=== PATIENT | female | born 1945 | race Caucasian/White ===

== ENCOUNTER 2024-02-26 15:18 | Inpatient (IN) ==
[2024-02-26] MEDS ORDERED: MAGNESIUM, ALUMINUM HYDROXIDE 30 ML ORAL.SUSP PO PRN (17:06)
[2024-02-26] MEDS: 0.9 % SODIUM CHLORIDE 1000 ML 1,000 ML IV SCH (18:00)
[2024-02-26 18:20] LABS: Base Excess ABG 0.6 mmo1/L (-2-2); Oxygen Saturation ABG 93 % (92-100); PCO2 ABG 36 mmHg (35-45); PO2 ABG 63 mmHg (60-100); pH ABG 7.44 (7.35-7.45)
[2024-02-26] MEDS: 0.9 % SODIUM CHLORIDE 500 ML IV ONE (18:40)
[2024-02-26] MEDS: FLUOXETINE HCL 10 MG CAPSULE PO SCH (18:50)
[2024-02-26] MEDS: LORATADINE 10 MG TABLET PO SCH (18:50)
[2024-02-26] MEDS: AZITHROMYCIN 500 MG 500 MG in 0.9 % SODIUM CHLORIDE 250 ML IV SCH ×2 (19:42→23:38)
[2024-02-26] MEDS: PIPERACILLIN/TAZOBACTAM 3.375 3.375 GM in 0.9 % SODIUM CHLORIDE MB+ 100 ML IV SCH (19:42)
[2024-02-26 20:02] LABS: Basophils #(Absolute) Auto 0.1 (0.0-0.1); Basophils%(Percent) Auto 0.8 (0.1-0.85); Eosinophils%(Percent) Auto 0.2 % (0.4-2.8); Granulocytes % - Auto 34.1 % (47.8-71.3); Granulocytes#(Absolute)- Auto 3.1 (2.3-6.0); Hematocrit 38.2 % (35.9-46.7); Monocytes #(Absolute)- Auto 0.9 (1.1-3.1); Platelet Count 239 K/uL (152-353); White Blood Count 9.1 K/uL (4.3-9.3)
[2024-02-26] MEDS: BUDESONIDE 0.5 MG/2 ML AMPUL.NEB INH SCH (20:05)
[2024-02-26] MEDS: IPRATROPIUM/ALBUTEROL SULFATE 3 ML AMPUL.NEB INH SCH (20:05)
[2024-02-26 20:13] LABS: Potassium 3.3 mmol/L (3.6-5.2)
[2024-02-26] MEDS: TRAZODONE HCL 50 MG TABLET PO SCH (20:31)
[2024-02-26] MEDS: QUETIAPINE FUMARATE 25 MG TABLET PO SCH (20:31)
[2024-02-26] MEDS: VANCOMYCIN HCL 1 MG in 0.9 % SODIUM CHLORIDE 250 ML IV SCH ×2 (20:32→23:38)
[2024-02-27] MEDS: ACETAMINOPHEN 500 MG TABLET PO PRN (02:12)
[2024-02-27 02:16] LABS: PH BODY FLUID EXCP BLOOD 7.5 (5 - 9); Specific Gravity Urine 1.015 (1.001-1.035); Urine Appearance HAZY (CLEAR); Urine Blood NEGATIVE (NEG - TRACE); Urine Color DARK YELLOW (STRAW/YELL.); Urine Urobilinogen Normal (NORMAL)
[2024-02-27 05:44] LABS: Basophils%(Percent) Auto 0.4 (0.1-0.85); Granulocytes % - Auto 50.8 % (47.8-71.3); Hematocrit 34.6 % (35.9-46.7); Mean Corpuscular Volume 89.9 fl (81.0-93.7); Monocytes #(Absolute)- Auto 1.2 (1.1-3.1); Monocytes %(Percent)- Auto 12.6 % (3.6-9.8); Platelet Count 195 K/uL (152-353); White Blood Count 9.8 K/uL (4.3-9.3)
[2024-02-27 06:23] LABS: Potassium 3.2 mmol/L (3.6-5.2)
[2024-02-27] MEDS: MULTIVITAMIN TABLET PO SCH (09:29)
[2024-02-27] MEDS: LEVOTHYROXINE SODIUM 75 MCG TABLET PO SCH (09:29)
[2024-02-27] MEDS: ALBUMIN HUMAN 25% 100 ML IV SCH (10:36)
[2024-02-27] MEDS: HYDROCODONE/CHLORPHEN P-STIREX 5 ML SUS.ER.12H PO PRN (10:37)
[2024-02-27] MEDS: MAGNESIUM OXIDE 400 MG TABLET PO SCH (10:37)
[2024-02-27] MEDS: POTASSIUM PHOSPHATE 500 MG TABLET.SOL PO SCH (10:37)
[2024-02-27] MEDS: POTASSIUM CHLORIDE 20 MEQ TAB.ER.PRT PO ONE (10:37)
--- NOTE | 2024-02-27 15:29 | History & Physical Report ---
H&P: HPI History of Present Illness Chief complaint: BILATERAL PNEUMONIA Narrative: Patient is a 78 year old female who was admitted to the [facility] on 02/19/2024. She tested positive for Influenza A on 02/23/2024 and developed Pneumonia thereafter. Patient was spiking a temperature of 102.3, treated with Tylenol and fever reduced to 99.2. Per nursing staff, wheezing on inspiratory and expiratory noted. Patient has become weaker since she has been sick. Difficulty arousing and not eating well also had increased respirations with desating into low 80's requiring oxygen and needs treatment not available currently in the BHU. Provider recommended patient discharging from SCU and admitted to the med/surg floor as an inpatient for further testing and care. Per dr Dahl patient improved depression and no longer a 1013 at this time. Patient not currently voicing desire to harm herself at the time of status change Review of Systems Status of ROS unobtainable due to mental status [facility] Medical History (Updated 02/29/24 @ 09:49 by Rae Amaya NP) Hypokalemia Pneumonia Hoarding behavior Depression with suicidal ideation Depression Suicidal ideation Hypothyroid Social History Problems where you live: no known problems Highest level of school completed/degree received: high school Feel stressed/tense/nervous/anxious/difficulty sleeping: only a little Life stressor details: Patient states - I want to end my life, her plan is to take an overdose of her prescribed antidepressant pills Due to disability, difficulty making decisions: Yes (judgement is compromised when she is upset.) Meds Home Medications and Allergies Home Medications Medication Instructions Recorded Confirmed Type levothyroxine 75 mcg tablet 75 mcg PO DAILY 02/20/24 02/20/24 History lidocaine 4 % topical patch 1 patch topical Q24H 02/20/24 02/20/24 History lorazepam 0.5 mg tablet 0.5 mg PO DAILY PRN anxiety 02/20/24 02/20/24 History pediatric multivitamin 1 tab PO DAILY 02/20/24 02/20/24 History (Flintstones Multivitamin chewable tablet) quetiapine 25 mg tablet 25 mg PO BID ANXIETY 02/20/24 02/20/24 History topiramate 50 mg tablet (Topamax) 50 mg PO BID 02/20/24 02/20/24 History trazodone 50 mg tablet 25 mg PO .QHS SLEEP 02/20/24 02/20/24 History acetaminophen 325 mg tablet 975 mg (3 x 325 mg) PO Q3H PRN 02/25/24 Rx Fever Of 100.5 Or Greater #30 tabs acetaminophen 325 mg tablet 975 mg (3 x 325 mg) PO Q3H PRN 02/25/24 Rx Fever Of 100.5 Or Greater #30 tabs fluoxetine 10 mg capsule (Prozac) 30 mg (3 x 10 mg) PO DAILY 02/25/24 Rx depression and anxiety #30 caps ibuprofen 400 mg tablet 600 mg (1.5 x 400 mg) PO Q3H PRN 02/25/24 Rx Fever Of 100.5 Or Greater #30 tabs ibuprofen 400 mg tablet 600 mg (1.5 x 400 mg) PO Q3H PRN 02/25/24 Rx Fever Of 100.5 Or Greater #30 tabs levothyroxine 75 mcg tablet 75 mcg PO DAILY hypothyroidism #30 02/25/24 Rx (Synthroid) tabs lidocaine 5 % topical patch 1 patch topical Q24H pain #30 ea 02/25/24 Rx (Lidoderm) lorazepam 0.5 mg tablet 0.25 mg (1/2 x 0.5 mg) PO BID 02/25/24 Rx anxiety #60 tabs multivitamin with folic acid 400 1 tab PO DAILY vitamin deficiency 02/25/24 Rx mcg tablet (Tab-A-Danie) #30 tabs oseltamivir 75 mg capsule (Tamiflu) 75 mg PO DAILY flu #10 caps 02/25/24 Rx quetiapine 25 mg tablet 25 mg PO BID psychosis and 02/25/24 Rx agitation #60 tabs topiramate 100 mg tablet 50 mg (1/2 x 100 mg) PO BID 02/25/24 Rx headache #60 tabs trazodone 50 mg tablet 25 mg (1/2 x 50 mg) PO .QHS 02/25/24 Rx insomnia #30 tabs Allergies Allergy/AdvReac Type Severity Reaction Status Date / Time No Known Drug Allergies Allergy Verified 02/19/24 16:36 Exam Exam: Patient laying in bed resting with eyes open. Constitutional: normal general appearance, distress noted (moderate), abnormal body habitus (overweight), limitations noted (behavioral limitations) and (physical limitations) and level of alertness abnormal (lethargic) Vital Signs - 24 hr 02/26/24 18:30 02/26/24 20:00 02/26/24 20:02 Temperature 98.5 F 98.7 F Pulse Rate [Right] Respiratory Rate 20 16 Blood Pressure [Le ft Arm] 95/61 123/55 Pulse Oximetry 94 L 94 L 93 L Oxygen Delivery Me thod Nasal Cannula Nasal Cannula Nasal Cannula Oxygen Flow Rate 3 2 Fraction of Inspir ed Oxygen 28 02/26/24 20:03 02/27/24 00:00 02/27/24 03:27 Temperature 103.1 F H Pulse Rate [Right] Respiratory Rate 16 Blood Pressure [Le ft Arm] 116/57 Pulse Oximetry 93 L 95 95 Oxygen Delivery Me thod Nasal Cannula Oxygen Flow Rate 3 Fraction of Inspir ed Oxygen 02/27/24 04:00 02/27/24 07:23 02/27/24 07:23 Temperature 99.5 F Pulse Rate [Right] Respiratory Rate 16 Blood Pressure [Le ft Arm] 87/41 Pulse Oximetry 100 92 L 92 L Oxygen Delivery Me thod Nasal Cannula Nasal Cannula Oxygen Flow Rate 3 3 Fraction of Inspir ed Oxygen 02/27/24 08:00 02/27/24 11:19 02/27/24 12:00 Temperature 97.7 F 98.6 F Pulse Rate [Right] 71 62 Respiratory Rate 18 18 Blood Pressure [Le ft Arm] 90/56 83/49 Pulse Oximetry 97 98 96 Oxygen Delivery Me thod Nasal Cannula Nasal Cannula Oxygen Flow Rate 3 3 Fraction of Inspir ed Oxygen HENMT: normocephalic, head/scalp atraumatic, external ears normal, nasal mucous membranes abnormal (nasal discharge), oral mucous membranes abnormal (dry) and oropharynx abnormal (erythema) Eyes: conjunctivae normal and periorbital findings normal Lymph: no lymphadenopathy noted Chest: inspection of chest normal Respiratory: breath sounds equal bilaterally, abnormal respiratory effort (shallow breathing) and (labored), auscultation abnormal (diminished breath sound) and (bronchial breath sounds) and wheezing noted (scattered wheezes) Cardiovascular: normal heart rate noted, regular rhythm noted and no murmur Gastrointestinal: nontender to palpation, nondistended and normoactive bowel sounds Extremities: normal to inspection 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 Psychiatry: Mental Status Exam documented in the separate MSE (In H&P under other) cooperative Feel stressed/tense/nervous/anxious/difficulty sleeping: only a little Due to disability, difficulty making decisions: Yes (judgement is compromised when she is upset.) Skin: skin color abnormal Reports (pale) Assessment and Plan Assessment and Plan (1) Pneumonia: Qualifiers: Laterality: bilateral Lung location: upper lobe of lung Pneumonia type: due to unspecified organism Qualified Code(s): J18.9 - Pneumonia, unspecified organism Code(s): J18.9 - Pneumonia, unspecified organism (2) Hypoxia: Code(s): R09.02 - Hypoxemia (3) Influenza A: Code(s): J10.1 - Influenza due to other identified influenza virus with other respiratory manifestations (4) Hypomagnesemia: Code(s): E83.42 - Hypomagnesemia (5) Hypoalbuminemia: Code(s): E88.09 - Other disorders of plasma-protein metabolism, not elsewhere classified (6) Hypokalemia: Code(s): E87.6 - Hypokalemia (7) Body aches: Code(s): R52 - Pain, unspecified (8) Major depressive disorder, recurrent, moderate: Code(s): F33.1 - Major depressive disorder, recurrent, moderate (9) Hypothyroid: Qualifiers: Hypothyroidism type: unspecified Qualified Code(s): E03.9 - Hypothyroidism, unspecified Code(s): E03.9 - Hypothyroidism, unspecified Plan Sodium Chloride 1,000 mls @ 125 mls/hr IV CONT Albumin 100 mls @ 60 mls/hr IV Q2H Albuterol Sulfate 3 ml INH RQ4 Budesonide 0.5 mg INH RBID Piperacillin Sod/Tazobactam Sod 3.375 gm in Sodium Chloride 100 mls @ 200 mls/hr IV Q6H Quetiapine Fumarate 25 mg PO BID Fluoxetine Hcl 30 mg PO DAILY Levothyroxine Sodium 75 mcg PO QDAC Trazodone Hcl 25 mg PO BEDTIME Loratadine 10 mg PO DAILY Multivitamins (1) each PO DAILY Azithromycin 500 mg in Sodium Chloride 250 mls @ 250 mls/hr IV Q24H Magnesium 400 mg PO DAILY Potassium Phosphate 500 mg PO BID Vancomycin Hcl 1,000 mg in Sodium Acetaminophen 1,000 mg PO Q6H PRN Magnesium Hydroxide 30 ml PO DAILY PRN Ketorolac Tromethamine 15 mg IVP Q6H PRN Chlorphenir/Hydrocodone Polistirex 5 ml Q12H PRN Results Labs Labs: CBC WBC 9.8 K/uL (4.3-9.3) H 02/27/24 05:35 RBC 3.9 M/uL (4.00-5.50) L 02/27/24 05:35 Hgb 11.5 gm/dL (12.5-15.8) L 02/27/24 05:35 Hct 34.6 % (35.9-46.7) L 02/27/24 05:35 MCV 89.9 fl (81.0-93.7) 02/27/24 05:35 MCH 30.0 pg (27.6-32.2) 02/27/24 05:35 MCHC 33.4 g/dl (33.1-35.3) 02/27/24 05:35 RDW 14.9 % (11.4-14.2) H 02/27/24 05:35 Plt Count 195 K/uL (152-353) 02/27/24 05:35 MPV 8.5 fl (6.9-10.8) 02/27/24 05:35 Gran % 50.8 % (47.8-71.3) 02/27/24 05:35 Lymph % (Auto) 36.2 % (20.0-43.0) 02/27/24 05:35 [place] % (Auto) 12.6 % (3.6-9.8) H 02/27/24 05:35 Eos % (Auto) 0.0 % (0.4-2.8) L 02/27/24 05:35 Baso % (Auto) 0.4 (0.1-0.85) 02/27/24 05:35 Lymph # (Auto) 3.6 (1.1-3.1) H 02/27/24 05:35 [place] # (Auto) 1.2 (1.1-3.1) 02/27/24 05:35 Eos # (Auto) 0.0 (0.0-0.2) 02/27/24 05:35 Baso # (Auto) 0.0 (0.0-0.1) 02/27/24 05:35 Absolute Gran (auto) 5.0 (2.3-6.0) 02/27/24 05:35 BMP Sodium 136 mmol/L (136-145) 02/27/24 05:35 Potassium 3.2 mmol/L (3.6-5.2) L 02/27/24 05:35 Chloride 104.0 mmol/L (98-107) 02/27/24 05:35 Carbon Dioxide 23 mmol/L (21-32) 02/27/24 05:35 Anion Gap 9.0 mEq/L (4-14) 02/27/24 05:35 BUN 14 mg/dL (7-18) 02/27/24 05:35 Creatinine 1.3 mg/dL (0.6-1.3) 02/27/24 05:35 Estimated GFR 42.1 (>59.9) 02/27/24 05:35 Glucose 104 mg/dL (70-110) 02/27/24 05:35 Calcium 7.4 mg/dL (8.5-10.1) L 02/27/24 05:35 Phosphorus 2.1 mg/dL (2.5-4.9) L 02/27/24 05:35 Magnesium 1.7 mg/dL (1.8-2.4) L 02/27/24 05:35 Total Bilirubin 0.35 mg/dL (0.0-1.0) 02/27/24 05:35 AST 39 U/L (15-37) H 02/27/24 05:35 ALT 10 U/L (30-65) L 02/27/24 05:35 Alkaline Phosphatase 60 U/L (50-136) 02/27/24 05:35 Total Protein 5.6 g/dL (6.4-8.2) L 02/27/24 05:35 Albumin 1.8 g/dL (3.4-5.0) L 02/27/24 05:35 Cardiac Enzymes Troponin I High Sens 21.40 ng/L (4.0-60.4) 02/26/24 19:55 Liver Function Total Bilirubin 0.35 mg/dL (0.0-1.0) 02/27/24 05:35 AST 39 U/L (15-37) H 02/27/24 05:35 ALT 10 U/L (30-65) L 02/27/24 05:35 Alkaline Phosphatase 60 U/L (50-136) 02/27/24 05:35 Total Protein 5.6 g/dL (6.4-8.2) L 02/27/24 05:35 Albumin 1.8 g/dL (3.4-5.0) L 02/27/24 05:35 Urine Urine Color Dark yellow (STRAW/YELL.) 02/26/24 02:05 Urine Appearance Hazy (CLEAR) 02/26/24 02:05 Ur Specific [place] 1.015 (1.001-1.035) 02/26/24 02:05 Urine Protein Negative (NEGATIVE) 02/26/24 02:05 Urine Glucose (UA) Normal (NORMAL) 02/26/24 02:05 Urine Ketones Negative (NEGATIVE) 02/26/24 02:05 Urine Occult Blood Negative (NEG - TRACE) 02/26/24 02:05 Urine Nitrite Negative (NEGATIVE) 02/26/24 02:05 Urine Bilirubin Negative (NEGATIVE) 02/26/24 02:05 Urine Urobilinogen Normal (NORMAL) 02/26/24 02:05 Ur Leukocyte Esterase Negative (NEGATIVE) 02/26/24 02:05 ABG ABG results: 02/26/24 17:06 ABG pH 7.44 ABG pCO2 36 ABG pO2 183 ABG HCO3 24.5 ABG Total CO2 25.6 ABG O2 Saturation 93 ABG Base Excess 0.6 Imaging Imaging ordered: Chest x-ray Radiologist's impression: XR CHEST 2V Date of Service: 02/27/24 HISTORY: pneumonia; COMPARISON: February 25, 2024 FINDINGS: The trachea is midline. The cardiac silhouette is mildly enlarged. Lung reveals improving bilateral bronchopneumonia with interstitial lung disease. No effusion seen. The bony thorax is unremarkable. IMPRESSION: Chronic interstitial lung disease. Improving bilateral bronchopneumonia.
[2024-02-27] MEDS: VANCOMYCIN HCL 1,000 MG in 0.9 % SODIUM CHLORIDE 250 ML IV SCH (20:06)
[2024-02-28 05:01] LABS: Basophils%(Percent) Auto 0.3 (0.1-0.85); Eosinophils%(Percent) Auto 0.1 % (0.4-2.8); Granulocytes % - Auto 67.2 % (47.8-71.3); Granulocytes#(Absolute)- Auto 7.3 (2.3-6.0); Hematocrit 31.7 % (35.9-46.7); Mean Corpuscular Volume 89.8 fl (81.0-93.7); Monocytes #(Absolute)- Auto 1.2 (1.1-3.1); Monocytes %(Percent)- Auto 11.4 % (3.6-9.8); Platelet Count 174 K/uL (152-353); White Blood Count 10.9 K/uL (4.3-9.3)
[2024-02-28 05:23] LABS: Potassium 3.8 mmol/L (3.6-5.2)
[2024-02-28 06:13] LABS: Specific Gravity Urine 1.015 (1.001-1.035); Urine Appearance CLEAR (CLEAR); Urine Blood NEGATIVE (NEG - TRACE); Urine Color YELLOW (STRAW/YELL.); Urine Urobilinogen Normal (NORMAL)
[2024-02-28] MEDS: KETOROLAC 30 MG/ML INJ VIAL IVP PRN (06:22)
--- NOTE | 2024-02-28 11:01 | Progress Note ---
Progress Note: Subjective Subjective Interval history: 78 year(s) old WF resting in SF position with daughter at bedside. Reports complaints of chills and headache. Daughter states that she has been having same complaints for past couple of days. Nurse's report she did have temp of 103 this morning and was treated with IV toradol with repeat temp 99. She was given Tylenol by nurse for complaints fo headache. Plan to be aggressive with respiratory therapy- percussion and neb treatments. Order for nursing staff to move patient at least every 3-4 hours. Exam Exam: Patient laying in bed resting with eyes open. Constitutional: normal general appearance, distress noted (moderate), abnormal body habitus (overweight), limitations noted (behavioral limitations) and (ph ysical limitations) and level of alertness abnormal (lethargic) Vital Signs - 24 hr 02/27/24 11:19 02/27/24 12:00 02/27/24 15:06 Temperature 98.6 F Pulse Rate [Right] 62 Respiratory Rate 18 Blood Pressure [Le ft Arm] 83/49 Pulse Oximetry 98 96 95 Oxygen Delivery Me thod Nasal Cannula Oxygen Flow Rate 3 02/27/24 16:00 02/27/24 20:11 02/27/24 21:04 Temperature 98.0 F 97.5 F L Pulse Rate [Right] 62 57 L Respiratory Rate 18 16 Blood Pressure [Le ft Arm] 97/50 84/44 Pulse Oximetry 94 L 95 94 L Oxygen Delivery Me thod Nasal Cannula Oxygen Flow Rate 3 02/27/24 21:04 02/27/24 23:43 02/28/24 05:03 Temperature 97.9 F 101.5 F H Pulse Rate [Right] 63 66 Respiratory Rate 16 Blood Pressure [Le ft Arm] 105/41 104/48 Pulse Oximetry 94 L 92 L 95 Oxygen Delivery Me thod Nasal Cannula Nasal Cannula Nasal Cannula Oxygen Flow Rate 3 02/28/24 07:47 02/28/24 07:47 02/28/24 08:06 Temperature 99.6 F Pulse Rate [Right] 99 H Respiratory Rate 18 Blood Pressure [Le ft Arm] 90/55 Pulse Oximetry 95 95 92 L Oxygen Delivery Me thod Nasal Cannula Nasal Cannula Oxygen Flow Rate 3 3 HENMT: normocephalic, head/scalp atraumatic, external ears normal, nasal mucous membranes abnormal (nasal discharge), oral mucous membranes abnormal (dry) and oropharynx abnormal (erythema) Eyes: conjunctivae normal and periorbital findings normal Lymph: no lymphadenopathy noted Chest: inspection of chest normal Respiratory: breath sounds equal bilaterally, abnormal respiratory effort (shallow breathing) and (labored), auscultation abnormal (diminished breath sound) and (bronchial breath sounds) and wheezing noted (scattered wheezes) Cardiovascular: normal heart rate noted, regular rhythm noted and no murmur Gastrointestinal: nontender to palpation, nondistended and normoactive bowel sounds Extremities: normal to inspection 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 Psychiatry: Mental Status Exam documented in the separate MSE (In H&P under other) cooperative Skin: skin color abnormal Reports (pale), skin turgor abnormal Reports (tenting) and no jaundice Progress Note: Objective Labs Labs: CBC WBC 10.9 K/uL (4.3-9.3) H 02/28/24 05:00 RBC 3.5 M/uL (4.00-5.50) L 02/28/24 05:00 Hgb 10.5 gm/dL (12.5-15.8) L 02/28/24 05:00 Hct 31.7 % (35.9-46.7) L 02/28/24 05:00 MCV 89.8 fl (81.0-93.7) 02/28/24 05:00 MCH 29.7 pg (27.6-32.2) 02/28/24 05:00 MCHC 33.1 g/dl (33.1-35.3) 02/28/24 05:00 RDW 15.0 % (11.4-14.2) H 02/28/24 05:00 Plt Count 174 K/uL (152-353) 02/28/24 05:00 MPV 8.5 fl (6.9-10.8) 02/28/24 05:00 Gran % 67.2 % (47.8-71.3) 02/28/24 05:00 Lymph % (Auto) 21.0 % (20.0-43.0) 02/28/24 05:00 [place] % (Auto) 11.4 % (3.6-9.8) H 02/28/24 05:00 Eos % (Auto) 0.1 % (0.4-2.8) L 02/28/24 05:00 Baso % (Auto) 0.3 (0.1-0.85) 02/28/24 05:00 Lymph # (Auto) 2.3 (1.1-3.1) 02/28/24 05:00 [place] # (Auto) 1.2 (1.1-3.1) 02/28/24 05:00 Eos # (Auto) 0.0 (0.0-0.2) 02/28/24 05:00 Baso # (Auto) 0.0 (0.0-0.1) 02/28/24 05:00 Absolute Gran (auto) 7.3 (2.3-6.0) H 02/28/24 05:00 BMP Sodium 140 mmol/L (136-145) 02/28/24 05:00 Potassium 3.8 mmol/L (3.6-5.2) 02/28/24 05:00 Chloride 108.0 mmol/L (98-107) H 02/28/24 05:00 Carbon Dioxide 24 mmol/L (21-32) 02/28/24 05:00 Anion Gap 8.0 mEq/L (4-14) 02/28/24 05:00 BUN 15 mg/dL (7-18) 02/28/24 05:00 Creatinine 1.3 mg/dL (0.6-1.3) 02/28/24 05:00 Estimated GFR 42.1 (>59.9) 02/28/24 05:00 Glucose 124 mg/dL (70-110) H 02/28/24 05:00 Calcium 7.4 mg/dL (8.5-10.1) L 02/28/24 05:00 Phosphorus 2.6 mg/dL (2.5-4.9) 02/28/24 05:00 Magnesium 1.8 mg/dL (1.8-2.4) 02/28/24 05:00 Total Bilirubin 0.52 mg/dL (0.0-1.0) 02/28/24 05:00 AST 32 U/L (15-37) 02/28/24 05:00 ALT 11 U/L (30-65) L 02/28/24 05:00 Alkaline Phosphatase 55 U/L (50-136) 02/28/24 05:00 Total Protein 5.8 g/dL (6.4-8.2) L 02/28/24 05:00 Albumin 2.3 g/dL (3.4-5.0) L 02/28/24 05:00 Cardiac Enzymes Troponin I High Sens 21.40 ng/L (4.0-60.4) 02/26/24 19:55 Liver Function Total Bilirubin 0.52 mg/dL (0.0-1.0) 02/28/24 05:00 AST 32 U/L (15-37) 02/28/24 05:00 ALT 11 U/L (30-65) L 02/28/24 05:00 Alkaline Phosphatase 55 U/L (50-136) 02/28/24 05:00 Total Protein 5.8 g/dL (6.4-8.2) L 02/28/24 05:00 Albumin 2.3 g/dL (3.4-5.0) L 02/28/24 05:00 Urine Urine Color Yellow (STRAW/YELL.) 02/28/24 06:05 Urine Appearance Clear (CLEAR) 02/28/24 06:05 Ur Specific [place] 1.015 (1.001-1.035) 02/28/24 06:05 Urine Protein Trace (NEGATIVE) 02/28/24 06:05 Urine Glucose (UA) Normal (NORMAL) 02/28/24 06:05 Urine Ketones Negative (NEGATIVE) 02/28/24 06:05 Urine Occult Blood Negative (NEG - TRACE) 02/28/24 06:05 Urine Nitrite Negative (NEGATIVE) 02/28/24 06:05 Urine Bilirubin Negative (NEGATIVE) 02/28/24 06:05 Urine Urobilinogen Normal (NORMAL) 02/28/24 06:05 Ur Leukocyte Esterase Negative (NEGATIVE) 02/28/24 06:05 Pulse Oximetry SpO2 results: 93% 3l nc Attestation: I have reviewed the pertinent pulse oximetry results. Imaging Chest x-ray: Attestation: I have reviewed the pertinent imaging results. Radiologist's impression: EXAM: XR CHEST 2V HISTORY: pneumoniapneumonia; COMPARISON: February 25, 2024 FINDINGS: The trachea is midline. The cardiac silhouette is mildly enlarged. Lung reveals improving bilateral bronchopneumonia with interstitial lung disease. No effusion seen. The bony thorax is unremarkable. IMPRESSION: Chronic interstitial lung disease. Improving bilateral bronchopneumonia. THIS IS AN ELECTRONICALLY VERIFIED FINAL REPORT 02/27/2024 8:13 AM - Electronically signed by José Miguel Gomez MD Progress Note: A&P Assessment and Plan (1) Pneumonia: Assessment and Plan: CXR- showed Improving bilateral bronchopneumonia. Repeat CXR in AM Continue with IV antibiotics Continue with neb treatments and chest percussion as ordered Nurses to move patient q3-4 hours while awake. Continue with supplemental O2- titrate for sats >92% CBC, CMP Daily Blood Cultures: No growth day 2 Qualifiers: Laterality: bilateral Lung location: upper lobe of lung Pneumonia type: due to unspecified organism Qualified Code(s): J18.9 - Pneumonia, unspecified organism (2) Hypoxia: Assessment and Plan: CXR- showed Improving bilateral bronchopneumonia. Repeat CXR in AM Continue with IV antibiotics Continue with neb treatments and chest percussion as ordered Nurses to move patient q3-4 hours while awake. Continue with supplemental O2- titrate for sats >92% CBC, CMP Daily Blood Cultures: No growth day 2 (3) Influenza A: Assessment and Plan: Airborne + Droplet precautions CXR- showed Improving bilateral bronchopneumonia. Repeat CXR in AM Continue with IV antibiotics Continue with neb treatments and chest percussion as ordered Nurses to move patient q3-4 hours while awake. Continue with supplemental O2- titrate for sats >92% CBC, CMP Daily Blood Cultures: No growth day 2 (4) Hypomagnesemia: Assessment and Plan: Electrolyte replacement per protocol CBC, CMP, Mag, Phos daily (5) Hypoalbuminemia: Assessment and Plan: Electrolyte replacement per protocol CBC, CMP, Mag, Phos daily (6) Hypokalemia: Assessment and Plan: Electrolyte replacement per protocol CBC, CMP, Mag, Phos daily (7) Body aches: Assessment and Plan: Pain control (8) Major depressive disorder, recurrent, moderate: Assessment and Plan: Continue home medications as directed (9) Hypothyroid: Assessment and Plan: Continue home medications as directed. Qualifiers: Hypothyroidism type: unspecified Qualified Code(s): E03.9 - Hypothyroidism, unspecified (10) Depression with suicidal ideation: Assessment and Plan: Continue home medications as directed Sitter/family at bedside per protocol. (11) Hoarding behavior: Assessment and Plan: Continue home medications as directed Sitter/family at bedside per protocol. Plan Plan to continue to be aggressive with respiratory therapy- percussion and neb treatments. Order for nursing staff to move patient at least every 3-4 hours. Sodium Chloride 1,000 mls @ 125 mls/hr IV CONT Albumin 100 mls @ 60 mls/hr IV Q2H Albuterol Sulfate 3 ml INH RQ4 Budesonide 0.5 mg INH RBID Piperacillin Sod/Tazobactam Sod 3.375 gm in Sodium Chloride 100 mls @ 200 mls/hr IV Q6H Quetiapine Fumarate 25 mg PO BID Fluoxetine Hcl 30 mg PO DAILY Levothyroxine Sodium 75 mcg PO QDAC Trazodone Hcl 25 mg PO BEDTIME Loratadine 10 mg PO DAILY Multivitamins (1) each PO DAILY Azithromycin 500 mg in Sodium Chloride 250 mls @ 250 mls/hr IV Q24H Magnesium 400 mg PO DAILY Potassium Phosphate 500 mg PO BID Vancomycin Hcl 1,000 mg in Sodium Acetaminophen 1,000 mg PO Q6H PRN Magnesium Hydroxide 30 ml PO DAILY PRN Ketorolac Tromethamine 15 mg IVP Q6H PRN Chlorphenir/Hydrocodone Polistirex 5 ml Q12H PRN Fall Risk Details [place] Fall Scale Risk Level: Moderate Fall Risk Current Medications: Current Medications Acetaminophen (Acetaminophen 500 Mg Tablet) 1,000 mg PO Q6H PRN PRN Reason: MILD PAIN SCALE 1-4 Last Admin: 02/28/24 05:21 Dose: 1,000 mg Albuterol Sulfate (Ipratropium/Albuterol Sulfate 3 Ml Ampul.Neb) 3 ml INH RQ4 [facility] Last Admin: 02/28/24 07:47 Dose: 3 ml Budesonide (Budesonide 0.5 Mg/2 Ml Ampul.Neb) 0.5 mg INH RBID [facility] Last Admin: 02/28/24 07:47 Dose: 0.5 mg Chlorphenir/Hydrocodone Polistirex (Hydrocodone/Chlorphen P-Stirex 5 Ml Shruti.Er.12h) 5 ml PO Q12H PRN PRN Reason: Cough Last Admin: 02/27/24 22:27 Dose: 5 ml Fluoxetine HCl (Fluoxetine Hcl 10 Mg Capsule) 30 mg PO DAILY [facility] Last Admin: 02/28/24 08:17 Dose: 30 mg Sodium Chloride (Sodium Chloride) 1,000 mls @ 125 mls/hr IV CONT [facility] Last Admin: 02/28/24 05:34 Dose: 125 mls/hr Piperacillin Sod/Tazobactam (Sod 3.375 gm/ Sodium Chloride) 100 mls @ 200 mls/hr IV Q6H [facility] Last Infusion: 02/28/24 09:18 Dose: Infused Azithromycin 500 mg/ Sodium (Chloride) 250 mls @ 250 mls/hr IV Q24H [facility] Last Infusion: 02/27/24 19:33 Dose: Infused Vancomycin HCl 1,000 mg/ (Sodium Chloride) 250 mls @ 250 mls/hr IV Q24H [facility] Last Infusion: 02/27/24 21:36 Dose: Infused Ketorolac Tromethamine (Ketorolac 30 Mg/Ml Inj Vial) 15 mg IVP Q6H PRN PRN Reason: Moderate Pain SCALE 5-7/fever Stop: 03/02/24 17:05 Last Admin: 02/28/24 06:22 Dose: 15 mg Levothyroxine Sodium (Levothyroxine Sodium 75 Mcg Tablet) 75 mcg PO QDAC [facility] Last Admin: 02/28/24 06:30 Dose: 75 mcg Loratadine (Loratadine 10 Mg Tablet) 10 mg PO DAILY [facility] Last Admin: 02/28/24 08:18 Dose: 10 mg Magnesium (Magnesium Oxide 400 Mg Tablet) 400 mg PO DAILY [facility] Last Admin: 02/28/24 08:17 Dose: 400 mg Magnesium Hydroxide (Magnesium, Aluminum Hydroxide 30 Ml Oral.Susp) 30 ml PO DAILY PRN PRN Reason: Constipation Multivitamins (Multivitamin Tablet) 1 each PO DAILY [facility] Last Admin: 02/28/24 08:18 Dose: 1 each Quetiapine Fumarate (Quetiapine Fumarate 25 Mg Tablet) 25 mg PO BID [facility] Last Admin: 02/28/24 08:18 Dose: 25 mg Trazodone HCl (Trazodone Hcl 50 Mg Tablet) 25 mg PO BEDTIME [facility] Last Admin: 02/27/24 20:06 Dose: 25 mg Time Spent With Patient Time: Total time spent is greater than 50% in coordination of care (as documented) at patient's floor/unit and/or counseling patient: Time with patient: 25 - 35 minutes
[2024-02-29] MEDS: guaiFENesin 100 MG/5 ML LIQUID PO PRN (00:05)
[2024-02-29] MEDS: LORazepam 2 MG/ML VIAL IVP ONE (05:00)
[2024-02-29] MEDS: BUMETANIDE 1 MG/4 ML VIAL IVP ONE ×2 (05:00→09:12)
[2024-02-29] MEDS: LORazepam 2 MG/ML VIAL ONE (05:01)
[2024-02-29 05:22] LABS: PCO2 ABG 39 mmHg (35-45); PO2 ABG 63 mmHg (60-100); pH ABG 7.34 (7.35-7.45)
[2024-02-29 05:23] LABS: Base Excess ABG -4.4 mmo1/L (-2-2); Oxygen Saturation ABG 90 % (92-100)
[2024-02-29] MEDS: ENOXAPARIN SODIUM 80 MG/0.8 ML SYRINGE SUBQ SCH (08:05)
--- NOTE | 2024-02-29 08:33 | Progress Note ---
Progress Note: Subjective Subjective Interval history: 78 year(s) old WF resting in SF position with daughters at bedside. Alert and oriented to person and place. Disoriented to time and event. Tachypneic and light coughing multiple times in a row- stating "just can't get anything up". Denies any complaints of pain at present. Unfortunately around 5:00 this morning there was a decline in her condition. She became tachypneic with increased work of breathing. She was placed on a Ventimask and D-dimer ordered which was significantly elevated. CTA performed which revealed no evidence for acute pulmonary embolus or aortic dissection. Did show diffuse patchy bilateral infiltrates with small effusions which may represent diffuse pneumonia or pulmonary edema as well as underlying fibrotic lung changes suspected. Suspect ARDs. Patient was placed on BIPAP with immediate positive response/ improvement noted. I do feel at this time this patient has exceeded the resources and/or services available at our facility and is needing transfer to to higher level of care where ICU is available. Exam Exam: Patient laying in bed resting with eyes open. Constitutional: normal general appearance, distress noted (severe) and (respiratory), abnormal body habitus (overweight), limitations noted (behavioral limitations) and (physical limitations) and level of alertness abnormal (lethargic) Vital Signs - 24 hr 02/28/24 11:10 02/28/24 12:28 02/28/24 15:34 Temperature 98.0 F Pulse Rate [Right] 82 Respiratory Rate 18 Blood Pressure Blood Pressure [Le ft Arm] 90/52 Pulse Oximetry 96 93 L 98 Oxygen Delivery Me thod Nasal Cannula Oxygen Flow Rate 3 Fraction of Inspir ed Oxygen 02/28/24 16:14 02/28/24 19:52 02/28/24 20:35 Temperature 97.7 F 97.8 F Pulse Rate [Right] 71 68 Respiratory Rate 18 16 Blood Pressure Blood Pressure [Le ft Arm] 83/40 99/49 Pulse Oximetry 94 L 94 L 94 L Oxygen Delivery Me thod Nasal Cannula Nasal Cannula Oxygen Flow Rate 3 Fraction of Inspir ed Oxygen 02/28/24 20:35 02/29/24 00:07 02/29/24 04:00 Temperature 98.0 F 98.7 F Pulse Rate [Right] 65 80 Respiratory Rate 18 40 H Blood Pressure Blood Pressure [Le ft Arm] 96/51 118/47 Pulse Oximetry 95 89 L 91 L Oxygen Delivery Me thod Nasal Cannula Nasal Cannula Venturi Mask Oxygen Flow Rate 2 Fraction of Inspir ed Oxygen 02/29/24 05:00 02/29/24 05:13 02/29/24 06:03 Temperature Pulse Rate [Right] Respiratory Rate Blood Pressure 124/68 118/47 Blood Pressure [Le ft Arm] Pulse Oximetry 89 L Oxygen Delivery Me thod Oxygen Flow Rate Fraction of Inspir ed Oxygen 02/29/24 07:30 02/29/24 07:30 02/29/24 08:00 Temperature 98.5 F Pulse Rate [Right] 94 H Respiratory Rate 14 Blood Pressure Blood Pressure [Le ft Arm] 112/58 Pulse Oximetry 95 91 L 92 L Oxygen Delivery Me thod Venturi Mask Venturi Mask Oxygen Flow Rate 15 Fraction of Inspir ed Oxygen 50 HENMT: normocephalic, head/scalp atraumatic, external ears normal, nasal mucous membranes abnormal (nasal discharge), oral mucous membranes abnormal (dry) and oropharynx abnormal (erythema) Eyes: conjunctivae normal and periorbital findings normal Lymph: no lymphadenopathy noted Chest: inspection of chest normal Respiratory: breath sounds equal bilaterally, abnormal respiratory effort (shallow breathing) and (labored), auscultation abnormal (diminished breath [place]) and (bronchial breath sounds), wheezing noted (scattered wheezes) and use of accessory muscles noted Cardiovascular: normal heart rate noted, regular rhythm noted and no murmur Gastrointestinal: abdomen normal to inspection, nontender to palpation, nondistended and normoactive bowel sounds Extremities: normal to inspection and no tenderness Neurology: television specialist II-XII intact Psychiatry: Mental Status Exam documented in the separate MSE (In H&P under other) orientation abnormal (disoriented to time), cooperative and affect normal Skin: skin color abnormal Reports (pale) and other (scattered bruising), skin turgor abnormal Reports (tenting) and no jaundice Progress Note: Objective Labs Labs: CBC WBC 10.9 K/uL (4.3-9.3) H 02/28/24 05:00 RBC 3.5 M/uL (4.00-5.50) L 02/28/24 05:00 Hgb 10.5 gm/dL (12.5-15.8) L 02/28/24 05:00 Hct 31.7 % (35.9-46.7) L 02/28/24 05:00 MCV 89.8 fl (81.0-93.7) 02/28/24 05:00 MCH 29.7 pg (27.6-32.2) 02/28/24 05:00 MCHC 33.1 g/dl (33.1-35.3) 02/28/24 05:00 RDW 15.0 % (11.4-14.2) H 02/28/24 05:00 Plt Count 174 K/uL (152-353) 02/28/24 05:00 MPV 8.5 fl (6.9-10.8) 02/28/24 05:00 Gran % 67.2 % (47.8-71.3) 02/28/24 05:00 Lymph % (Auto) 21.0 % (20.0-43.0) 02/28/24 05:00 Webster % (Auto) 11.4 % (3.6-9.8) H 02/28/24 05:00 Eos % (Auto) 0.1 % (0.4-2.8) L 02/28/24 05:00 Baso % (Auto) 0.3 (0.1-0.85) 02/28/24 05:00 Lymph # (Auto) 2.3 (1.1-3.1) 02/28/24 05:00 Webster # (Auto) 1.2 (1.1-3.1) 02/28/24 05:00 Eos # (Auto) 0.0 (0.0-0.2) 02/28/24 05:00 Baso # (Auto) 0.0 (0.0-0.1) 02/28/24 05:00 Absolute Gran (auto) 7.3 (2.3-6.0) H 02/28/24 05:00 BMP Sodium 140 mmol/L (136-145) 02/28/24 05:00 Potassium 3.8 mmol/L (3.6-5.2) 02/28/24 05:00 Chloride 108.0 mmol/L (98-107) H 02/28/24 05:00 Carbon Dioxide 24 mmol/L (21-32) 02/28/24 05:00 Anion Gap 8.0 mEq/L (4-14) 02/28/24 05:00 BUN 15 mg/dL (7-18) 02/28/24 05:00 Creatinine 1.3 mg/dL (0.6-1.3) 02/28/24 05:00 Estimated GFR 42.1 (>59.9) 02/28/24 05:00 Glucose 124 mg/dL (70-110) H 02/28/24 05:00 Calcium 7.4 mg/dL (8.5-10.1) L 02/28/24 05:00 Phosphorus 2.6 mg/dL (2.5-4.9) 02/28/24 05:00 Magnesium 1.8 mg/dL (1.8-2.4) 02/28/24 05:00 Total Bilirubin 0.52 mg/dL (0.0-1.0) 02/28/24 05:00 AST 32 U/L (15-37) 02/28/24 05:00 ALT 11 U/L (30-65) L 02/28/24 05:00 Alkaline Phosphatase 55 U/L (50-136) 02/28/24 05:00 Total Protein 5.8 g/dL (6.4-8.2) L 02/28/24 05:00 Albumin 2.3 g/dL (3.4-5.0) L 02/28/24 05:00 Cardiac Enzymes Troponin I High Sens 21.40 ng/L (4.0-60.4) 02/26/24 19:55 Liver Function Total Bilirubin 0.52 mg/dL (0.0-1.0) 02/28/24 05:00 AST 32 U/L (15-37) 02/28/24 05:00 ALT 11 U/L (30-65) L 02/28/24 05:00 Alkaline Phosphatase 55 U/L (50-136) 02/28/24 05:00 Total Protein 5.8 g/dL (6.4-8.2) L 02/28/24 05:00 Albumin 2.3 g/dL (3.4-5.0) L 02/28/24 05:00 Urine Urine Color Yellow (STRAW/YELL.) 02/28/24 06:05 Urine Appearance Clear (CLEAR) 02/28/24 06:05 Ur Specific Mineral 1.015 (1.001-1.035) 01/18/25 06:05 Urine Protein Trace (NEGATIVE) 02/28/24 06:05 Urine Glucose (UA) Normal (NORMAL) 02/28/24 06:05 Urine Ketones Negative (NEGATIVE) 02/28/24 06:05 Urine Occult Blood Negative (NEG - TRACE) 02/28/24 06:05 Urine Nitrite Negative (NEGATIVE) 02/28/24 06:05 Urine Bilirubin Negative (NEGATIVE) 02/28/24 06:05 Urine Urobilinogen Normal (NORMAL) 02/28/24 06:05 Ur Leukocyte Esterase Negative (NEGATIVE) 02/28/24 06:05 ABG Attestation: I have reviewed the pertinent ABG results. Pulse Oximetry SpO2 results: 92% RA Attestation: I have reviewed the pertinent pulse oximetry results. Imaging CT scan - chest: Attestation: I have reviewed the pertinent imaging results. Radiologist's impression: EXAMINATION: CT ANGIO CHEST HISTORY: RESPIRATORY DISTRESSRESPIRATORY DISTRESS; . COMPARISON: None. TECHNIQUE: Routine axial imaging of the chest was performed. CT angiography of the pulmonary arteries was performed with maximum intensity projection images and volume rendered images on a workstation.. The above CT scan was done with automated exposure control and the mA and kV was adjusted to obtain quality images according to patient size. FINDINGS: Lungs: Study is degraded by respiratory motion. There are diffuse patchy bilateral multifocal infiltrates likely representing pneumonia or pulmonary edema. Underlying fibrotic changes are suspected. Due to the amount of opacity present and it is difficult to assess for pulmonary nodules. Central Airways: No obstructing endobronchial lesions. Pleura: Small bilateral effusions with atelectasis at the lung bases. Thoracic Aorta: Ectasia. Atherosclerotic calcification. No dissection Main Pulmonary Trunk: Normal diameter. No CT angiography evidence for acute pulmonary embolus. Evaluation of segmental and subsegmental branches limited by respiratory motion. Lymph Nodes: There are some reactive mediastinal lymph nodes. No pathologically enlarged lymph nodes. Heart/Pericardium: Cardiomegaly. No significant pericardial effusion. Coronary artery calcification in the LAD Liver: No acute findings GB/Biliary: Contracted or surgically absent Spleen: Splenectomy or previous trauma Pancreas: No acute findings as visualized Adrenal Glands: No mass Kidneys limited visualization. Abdominal Aorta: Tapers normally. Extensive atherosclerotic calcification Retroperitoneum: No pathologically enlarged lymph nodes Bowel/Peritoneal Cavity: No acute findings as visualized Osseous Structures: Degenerative changes in the thoracolumbar spine. No acute findings or bony lesions. Other: None IMPRESSION: No CT angiography evidence for acute pulmonary embolus or aortic dissection. Evaluation of segmental and subsegmental branches limited by respiratory motion. Diffuse patchy bilateral infiltrates with small effusions may represent diffuse pneumonia or pulmonary edema. Correlate clinically. Follow-up to resolution recommended. Underlying fibrotic lung changes suspected. The above CT scan was done with automated exposure control and the mA and kV was adjusted to obtain quality images according to patient size THIS IS AN ELECTRONICALLY VERIFIED FINAL REPORT 02/29/2024 8:27 AM - Electronically signed by Javier Luna MD Progress Note: A&P Assessment and Plan (1) ARDS (adult respiratory distress syndrome): Assessment and Plan: BIPAP TRANSFER TO [facility] ICU (2) Pneumonia: Assessment and Plan: BIPAP TRANSFER TO [facility] Continue with IV antibiotics Continue with neb treatments and chest percussion as ordered Blood Cultures: No growth day 3 Qualifiers: Laterality: bilateral Lung location: upper lobe of lung Pneumonia type: due to unspecified organism Qualified Code(s): J18.9 - Pneumonia, unspecified organism (3) Hypoxia: Assessment and Plan: BIPAP TRANSFER TO [facility] Continue with IV antibiotics Continue with neb treatments and chest percussion as ordered Blood Cultures: No growth day 3 (4) Influenza A: Assessment and Plan: BIPAP TRANSFER TO [facility] Continue with IV antibiotics Continue with neb treatments and chest percussion as ordered Blood Cultures: No growth day 3 (5) Hypomagnesemia: Assessment and Plan: Electrolyte replacement per protocol BIPAP TRANSFER TO [facility] Continue with IV antibiotics Continue with neb treatments and chest percussion as ordered Blood Cultures: No growth day 3 (6) Hypoalbuminemia: Assessment and Plan: Electrolyte replacement per protocol BIPAP TRANSFER TO [facility] Continue with IV antibiotics Continue with neb treatments and chest percussion as ordered Blood Cultures: No growth day 3 (7) Hypokalemia: Assessment and Plan: Electrolyte replacement per protocol BIPAP TRANSFER TO [facility] Continue with IV antibiotics Continue with neb treatments and chest percussion as ordered Blood Cultures: No growth day 3 (8) Body aches: Assessment and Plan: Pain control (9) Major depressive disorder, recurrent, moderate: Assessment and Plan: Continue home medications as directed (10) Hypothyroid: Assessment and Plan: Continue home medications as directed. Qualifiers: Hypothyroidism type: unspecified Qualified Code(s): E03.9 - Hypothyroidism, unspecified (11) Depression with suicidal ideation: Assessment and Plan: Continue home medications as directed Sitter/family at bedside per protocol. (12) Hoarding behavior: Assessment and Plan: Continue home medications as directed Sitter/family at bedside per protocol. Plan I have deemed the patient has exceeded the resources and/or services available at our facility. The patient has been stabilized to a point that I feel it is safe to be transported and further deterioration could happen if the transfer was delayed. Family in agreement with plan. I have discussed pertinent history, physical and diagnostics with the accepting facility, specifically with Dr. Edwards at [facility] in [place], [place], who has graciously agreed to accept pt in transfer for higher level of care, specifically for ICU services. Please see the COBRA form for further details. Fall Risk Details Tal[place]antes Fall Scale Risk Level: Moderate Fall Risk Current Medications: Current Medications Acetaminophen (Acetaminophen 500 Mg Tablet) 1,000 mg PO Q6H PRN PRN Reason: MILD PAIN SCALE 1-4 Last Admin: 02/29/24 08:20 Dose: 1,000 mg Albuterol Sulfate (Ipratropium/Albuterol Sulfate 3 Ml Ampul.Neb) 3 ml INH RQ4 [facility] Last Admin: 02/29/24 07:30 Dose: 3 ml Budesonide (Budesonide 0.5 Mg/2 Ml Ampul.Neb) 0.5 mg INH RBID [facility] Last Admin: 02/29/24 07:30 Dose: 0.5 mg Chlorphenir/Hydrocodone Polistirex (Hydrocodone/Chlorphen P-Stirex 5 Ml Shruti.Er.12h) 5 ml PO Q12H PRN PRN Reason: Cough Last Admin: 02/28/24 14:04 Dose: 5 ml Enoxaparin Sodium (Enoxaparin Sodium 80 Mg/0.8 Ml Syringe) 80 mg SUBQ Q12H [facility] Last Admin: 02/29/24 08:05 Dose: 80 mg Fluoxetine HCl (Fluoxetine Hcl 10 Mg Capsule) 30 mg PO DAILY [facility] Last Admin: 02/29/24 08:17 Dose: 30 mg Guaifenesin (Guaifenesin 100 Mg/5 Ml Liquid) 200 mg PO Q6H PRN PRN Reason: Cough Last Admin: 02/29/24 00:05 Dose: 200 mg Sodium Chloride (Sodium Chloride) 1,000 mls @ 125 mls/hr IV CONT [facility] Last Admin: 02/28/24 17:18 Dose: Not Given Piperacillin Sod/Tazobactam (Sod 3.375 gm/ Sodium Chloride) 100 mls @ 200 mls/hr IV Q6H [facility] Last Admin: 02/29/24 08:05 Dose: 200 mls/hr Azithromycin 500 mg/ Sodium (Chloride) 250 mls @ 250 mls/hr IV Q24H [facility] Last Infusion: 02/28/24 20:33 Dose: Infused Vancomycin HCl 1,000 mg/ (Sodium Chloride) 250 mls @ 250 mls/hr IV Q24H [facility] Last Infusion: 02/28/24 21:40 Dose: Infused Ketorolac Tromethamine (Ketorolac 30 Mg/Ml Inj Vial) 15 mg IVP Q6H PRN PRN Reason: Moderate Pain SCALE 5-7/fever Stop: 03/02/24 17:05 Last Admin: 02/29/24 00:05 Dose: 15 mg Levothyroxine Sodium (Levothyroxine Sodium 75 Mcg Tablet) 75 mcg PO QDAC [facility] Last Admin: 02/29/24 08:17 Dose: 75 mcg Loratadine (Loratadine 10 Mg Tablet) 10 mg PO DAILY [facility] Last Admin: 02/29/24 08:17 Dose: 10 mg Magnesium (Magnesium Oxide 400 Mg Tablet) 400 mg PO DAILY [facility] Last Admin: 02/29/24 08:17 Dose: 400 mg Magnesium Hydroxide (Magnesium, Aluminum Hydroxide 30 Ml Oral.Susp) 30 ml PO DAILY PRN PRN Reason: Constipation Morphine Sulfate (Morphine Sulfate 2 Mg/Ml Cartridge) 2 mg IV ONCE ONE Stop: 02/29/24 08:29 Multivitamins (Multivitamin Tablet) 1 each PO DAILY [facility] Last Admin: 02/29/24 08:17 Dose: 1 each Quetiapine Fumarate (Quetiapine Fumarate 25 Mg Tablet) 25 mg PO BID [facility] Last Admin: 02/29/24 08:17 Dose: 25 mg Trazodone HCl (Trazodone Hcl 50 Mg Tablet) 25 mg PO BEDTIME DAVID Last Admin: 02/28/24 20:32 Dose: 25 mg Time Spent With Patient Time: Total time spent is greater than 50% in coordination of care (as documented) at patient's floor/unit and/or counseling patient: Time with patient: greater than 35 minutes
[2024-02-29] MEDS: MORPHINE SULFATE 2 MG/ML CARTRIDGE IV ONE (08:41)
[2024-02-29] MEDS: METHYLPREDNISOLONE SOD SUCC/PF 40 MG/ML VIAL INJ ONE (09:12)
[2024-02-29 09:43] LABS: PCO2 ABG 38 mmHg (35-45); pH ABG 7.33 (7.35-7.45)
[2024-02-29 09:45] LABS: Base Excess ABG -5.4 mmo1/L (-2-2); Oxygen Saturation ABG 84 % (92-100); PO2 ABG 52 mmHg (60-100)
--- NOTE | 2024-02-29 09:57 | Discharge Summary ---
DS: Providers Provider Date of admission: 02/26/24 15:18 Primary care physician: Geraldine Dahl MD Admitting clinician: Jocelyn Mar Attending physician on admission: Faina Coy Consults: 02/27/24 10:19 Consult to Occupational Therapy Routine Comment: Consulting Provider: Reason for consultation: increased debility Physician Instructions: evaluate and treat Consult to Physical Therapy Routine Comment: Consulting Provider: Reason for consultation: noemi pneumonia, increased debility Physician Instructions: evaluate and treat and chest physiotherapy Consult to Speech Therapy Routine Comment: Consulting Provider: Reason for consultation: increased debility and not eating Physician Instructions: evaluate and treat Attending physician on discharge: Faina Coy Discharging clinician: Rae Amaya Anticipated date of discharge: 02/29/24 DS: Diagnosis Discharge Diagnosis (1) ARDS (adult respiratory distress syndrome): Assessment and plan: BIPAP TRANSFER TO [facility] ICU (2) Pneumonia: Assessment and plan: BIPAP TRANSFER TO [facility] Continue with IV antibiotics Continue with neb treatments and chest percussion as ordered Blood Cultures: No growth day 3 Qualifiers: Pneumonia type: due to unspecified organism Laterality: bilateral Lung location: upper lobe of lung Qualified Code(s): J18.9 - Pneumonia, unspecified organism (3) Hypoxia: Assessment and plan: BIPAP TRANSFER TO [facility] Continue with IV antibiotics Continue with neb treatments and chest percussion as ordered Blood Cultures: No growth day 3 (4) Influenza A: Assessment and plan: BIPAP TRANSFER TO [facility] Continue with IV antibiotics Continue with neb treatments and chest percussion as ordered Blood Cultures: No growth day 3 (5) Hypoalbuminemia: Assessment and plan: Electrolyte replacement per protocol BIPAP TRANSFER TO [facility] Continue with IV antibiotics (6) Hypokalemia: Assessment and plan: Replaced- and WNL Electrolyte replacement per protocol BIPAP TRANSFER TO [facility] (7) Body aches: Assessment and plan: Electrolyte replacement per protocol BIPAP TRANSFER TO [facility] (8) Major depressive disorder, recurrent, moderate: Assessment and plan: BIPAP TRANSFER TO [facility] PLAN TO CONTINUE HOME MEDS DIRECTED. (9) Hypothyroid: Assessment and plan: BIPAP TRANSFER TO HIGHER LEVEL OF CARE- [facility] PLAN TO CONTINUE HOME MEDS DIRECTED. Qualifiers: Hypothyroidism type: unspecified Qualified Code(s): E03.9 - Hypothyroidism, unspecified (10) Depression with suicidal ideation: Assessment and plan: BIPAP TRANSFER TO HIGHER LEVEL OF CARE- [facility] PLAN TO CONTINUE HOME MEDS DIRECTED. (11) Hoarding behavior: Assessment and plan: BIPAP TRANSFER TO HIGHER LEVEL OF CARE- [facility] PLAN TO CONTINUE HOME MEDS DIRECTED. Plan I have deemed the patient has exceeded the resources and/or services available at our facility. The patient has been stabilized to a point that I feel it is safe to be transported and further deterioration could happen if the transfer was delayed. Family in agreement with plan. I have discussed pertinent history, physical and diagnostics with the accepting facility, specifically with Dr. Edwards at [facility] in [place], [place], who has graciously agreed to accept pt in transfer for higher level of care, specifically for ICU services. Please see the COBRA form for further details. DS: Summary Hospital Course Hospital Course: Unfortunately around 5:00 this morning there was a decline in her condition. She became tachypneic with increased work of breathing. She was placed on a Ventimask and D-dimer ordered which was significantly elevated. CTA performed which revealed no evidence for acute pulmonary embolus or aortic dissection. Did show diffuse patchy bilateral infiltrates with small effusions which may represent diffuse pneumonia or pulmonary edema as well as underlying fibrotic lung changes suspected. Suspect ARDs. Patient was placed on BIPAP with immediate positive response/ improvement noted. I do feel at this time this patient has exceeded the resources and/or services available at our facility and is needing transfer to to higher level of care where ICU is available. I have deemed the patient has exceeded the resources and/or services available at our facility. The patient has been stabilized to a point that I feel it is safe to be transported and further deterioration could happen if the transfer was delayed. Family in agreement with plan. I have discussed pertinent history, physical and diagnostics with the accepting facility, specifically with Dr. Edwards at [facility] in [place], [place], who has graciously agreed to accept pt in transfer for higher level of care, specifically for ICU servic es. Please see the COBRA form for further details. Time spent discussing smoking cessation with patient: more than 10 minutes Status at Discharge Cognitive/behavioral status at discharge: GUARDED Overall status at discharge: patient is not back to baseline Time Spent with Patient Time attestation: Total time spent providing and/or coordinating discharge services: Time spent: greater than 30 minutes Exam Exam: Patient laying in bed resting with eyes open on BIPAP. Constitutional: normal general appearance, distress noted (severe) and (respiratory), abnormal body habitus (overweight), limitations noted (behavioral limitations) and (physical limitations) and level of alertness abnormal (lethargic) Vital Signs - 24 hr 02/28/24 11:10 02/28/24 12:28 02/28/24 15:34 Temperature 98.0 F Pulse Rate [Right] 82 Respiratory Rate 18 Blood Pressure Blood Pressure [Le ft Arm] 90/52 Pulse Oximetry 96 93 L 98 Oxygen Delivery Me thod Nasal Cannula Oxygen Flow Rate 3 Fraction of Inspir ed Oxygen 02/28/24 16:14 02/28/24 19:52 02/28/24 20:35 Temperature 97.7 F 97.8 F Pulse Rate [Right] 71 68 Respiratory Rate 18 16 Blood Pressure Blood Pressure [Le ft Arm] 83/40 99/49 Pulse Oximetry 94 L 94 L 94 L Oxygen Delivery Me thod Nasal Cannula Nasal Cannula Oxygen Flow Rate 3 Fraction of Inspir ed Oxygen 02/28/24 20:35 02/29/24 00:07 02/29/24 04:00 Temperature 98.0 F 98.7 F Pulse Rate [Right] 65 80 Respiratory Rate 18 40 H Blood Pressure Blood Pressure [Le ft Arm] 96/51 118/47 Pulse Oximetry 95 89 L 91 L Oxygen Delivery Me thod Nasal Cannula Nasal Cannula Venturi Mask Oxygen Flow Rate 2 Fraction of Inspir ed Oxygen 02/29/24 05:00 02/29/24 05:13 02/29/24 06:03 Temperature Pulse Rate [Right] Respiratory Rate Blood Pressure 124/68 118/47 Blood Pressure [Le ft Arm] Pulse Oximetry 89 L Oxygen Delivery Me thod Oxygen Flow Rate Fraction of Inspir ed Oxygen 02/29/24 07:30 02/29/24 07:30 02/29/24 08:00 Temperature 98.5 F Pulse Rate [Right] 94 H Respiratory Rate 14 Blood Pressure Blood Pressure [Le ft Arm] 112/58 Pulse Oximetry 95 91 L 92 L Oxygen Delivery Me thod Venturi Mask Venturi Mask Oxygen Flow Rate 15 Fraction of Inspir ed Oxygen 50 02/29/24 09:12 Temperature Pulse Rate [Right] Respiratory Rate Blood Pressure 96/45 Blood Pressure [Le ft Arm] Pulse Oximetry Oxygen Delivery Me thod Oxygen Flow Rate Fraction of Inspir ed Oxygen HENMT: normocephalic, head/scalp atraumatic, external ears normal, nasal mucous membranes abnormal (nasal discharge), oral mucous membranes abnormal (dry) and oropharynx abnormal (erythema) Eyes: conjunctivae normal and periorbital findings normal Lymph: no lymphadenopathy noted Chest: inspection of chest normal Respiratory: breath sounds equal bilaterally, abnormal respiratory effort (shallow breathing) and (labored), auscultation abnormal (diminished breath sound) and (bronchial breath sounds), wheezing noted (scattered wheezes) and use of accessory muscles noted Cardiovascular: normal heart rate noted, regular rhythm noted and no murmur Gastrointestinal: abdomen normal to inspection, nontender to palpation, nondistended and normoactive bowel sounds Extremities: normal to inspection and no tenderness 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 Psychiatry: Mental Status Exam documented in the separate MSE (In H&P under other) orientation abnormal (disoriented to time), cooperative and affect normal Skin: skin color abnormal Reports (pale) and other (scattered bruising), skin turgor abnormal Reports (tenting) and no jaundice DS: Data Data Completed and Pending Labs on day of discharge: Labs from last 24 hours 02/29/24 02/29/24 02/29/24 09:05 09:05 04:54 D-Dimer 1560 H ABG pH 7.33 L ABG pCO2 38 ABG pO2 309 52 L* ABG PO2/FiO2 Ratio 0.17 ABG HCO3 20.0 L ABG Total CO2 21.2 ABG O2 Saturation 84 L* ABG Base Excess -5.4 L A-a O2 Gradient 257 Respiratory Index 4.9 H FiO2 50 B-Natriuretic Peptide 438.0 H Vancomycin Trough 02/29/24 02/29/24 02/28/24 04:40 04:40 20:30 D-Dimer ABG pH 7.34 L ABG pCO2 39 ABG pO2 379 63 ABG PO2/FiO2 Ratio 0.17 ABG HCO3 21 L ABG Total CO2 22.2 ABG O2 Saturation 90 L ABG Base Excess -4.4 L A-a O2 Gradient 316 Respiratory Index 5.0 H FiO2 60 B-Natriuretic Peptide Vancomycin Trough 13.2 Preliminary micro results at discharge 02/26/24 19:55 Blood Culture - Preliminary Blood - Venous Draw (Peripheral) Imaging CT scan - chest: Attestation: I have reviewed the pertinent imaging results. Radiologist's impression: EXAMINATION: CT ANGIO CHEST HISTORY: RESPIRATORY DISTRESSRESPIRATORY DISTRESS; . COMPARISON: None. TECHNIQUE: Routine axial imaging of the chest was performed. CT angiography of the pulmonary arteries was performed with maximum intensity projection images and volume rendered images on a workstation.. The above CT scan was done with automated exposure control and the mA and kV was adjusted to obtain quality images according to patient size. FINDINGS: Lungs: Study is degraded by respiratory motion. There are diffuse patchy bilateral multifocal infiltrates likely representing pneumonia or pulmonary edema. Underlying fibrotic changes are suspected. Due to the amount of opacity present and it is difficult to assess for pulmonary nodules. Central Airways: No obstructing endobronchial lesions. Pleura: Small bilateral effusions with atelectasis at the lung bases. Thoracic Aorta: Ectasia. Atherosclerotic calcification. No dissection Main Pulmonary Trunk: Normal diameter. No CT angiography evidence for acute pulmonary embolus. Evaluation of segmental and subsegmental branches limited by respiratory motion. Lymph Nodes: There are some reactive mediastinal lymph nodes. No pathologically enlarged lymph nodes. Heart/Pericardium: Cardiomegaly. No significant pericardial effusion. Coronary artery calcification in the LAD Liver: No acute findings GB/Biliary: Contracted or surgically absent Spleen: Splenectomy or previous trauma Pancreas: No acute findings as visualized Adrenal Glands: No mass Kidneys limited visualization. Abdominal Aorta: Tapers normally. Extensive atherosclerotic calcification Retroperitoneum: No pathologically enlarged lymph nodes Bowel/Peritoneal Cavity: No acute findings as visualized Osseous Structures: Degenerative changes in the thoracolumbar spine. No acute findings or bony lesions. Other: None IMPRESSION: No CT angiography evidence for acute pulmonary embolus or aortic dissection. Evaluation of segmental and subsegmental branches limited by respiratory motion. Diffuse patchy bilateral infiltrates with small effusions may represent diffuse pneumonia or pulmonary edema. Correlate clinically. Follow-up to resolution recommended. Underlying fibrotic lung changes suspected. The above CT scan was done with automated exposure control and the mA and kV was adjusted to obtain quality images according to patient size THIS IS AN ELECTRONICALLY VERIFIED FINAL REPORT 02/29/2024 8:27 AM - Electronically signed by Javier Luna MD Discharge Plan Discharge Disposition: [facility] Discharge Medications: No Action lidocaine 4 % adhesive patch,medicated 1 patch topical Q24H Rx Instructions: may leave on for up to 12 hrs Flintstones Multivitamin Tablet,Chewable 1 tab PO DAILY quetiapine 25 mg tablet 25 mg PO BID trazodone 50 mg tablet 25 mg PO .QHS topiramate [Topamax] 50 mg tablet 50 mg PO BID levothyroxine 75 mcg tablet 75 mcg PO DAILY lorazepam 0.5 mg tablet 0.5 mg PO DAILY PRN (Reason: anxiety) quetiapine 25 mg Tablet 25 mg PO BID Qty: 60 0RF acetaminophen 325 mg Tablet 975 mg PO Q3H PRN (Reason: Fever Of 100.5 Or Greater) Qty: 30 0RF acetaminophen 325 mg Tablet 975 mg PO Q3H PRN (Reason: Fever Of 100.5 Or Greater) Qty: 30 0RF trazodone 50 mg Tablet 25 mg PO .QHS Qty: 30 0RF levothyroxine [Synthroid] 75 mcg Tablet 75 mcg PO DAILY Qty: 30 0RF lorazepam 0.5 mg Tablet 0.25 mg PO BID Qty: 60 0RF oseltamivir [Tamiflu] 75 mg Capsule 75 mg PO DAILY Qty: 10 0RF lidocaine [Lidoderm] 5 % Adhesive Patch,Medicated 1 patch topical Q24H Qty: 30 0RF ibuprofen 400 mg Tablet 600 mg PO Q3H PRN (Reason: Fever Of 100.5 Or Greater) Qty: 30 0RF ibuprofen 400 mg Tablet 600 mg PO Q3H PRN (Reason: Fever Of 100.5 Or Greater) Qty: 30 0RF fluoxetine [Prozac] 10 mg Capsule 30 mg PO DAILY Qty: 30 0RF topiramate 100 mg Tablet 50 mg PO BID Qty: 60 0RF multivitamin with folic acid [Tab-A-Danie] 400 mcg Tablet 1 tab PO DAILY Qty: 30 0RF Discharge Orders: Discharge Order (Routine); Ordered 02/29/24 Ordered By: [facility] Course: Unfortunately around 5:00 this morning there was a decline in her condition. She became tachypneic with increased work of breathing. She was placed on a Ventimask and D-dimer ordered which was significantly elevated. CTA performed which revealed no evidence for acute pulmonary embolus or aortic dissection. Did show diffuse patchy bilateral infiltrates with small effusions which may rep resent diffuse pneumonia or pulmonary edema as well as underlying fibrotic lung changes suspected. Suspect ARDs. Patient was placed on BIPAP with immediate positive response/ improvement noted. I do feel at this time this patient has exceeded the resources and/or services available at our facility and is needing transfer to to higher level of care where ICU is available. I have deemed the patient has exceeded the resources and/or services available at our facility. The patient has been stabilized to a point that I feel it is safe to be transported and further deterioration could happen if the transfer was delayed. Family in agreement with plan. I have discussed pertinent history, physical and diagnostics with the accepting facility, specifically with Dr. Edwards at [facility] in [place], [place], who has graciously agreed to accept pt in transfer for higher level of care, specifically for ICU services. Please see the COBRA form for further details. Interventions: MED/SURG & ICU Observation Charge Sheet Last Done: 02/29/24 05:24 Assessment: GUARDED Plan of Treatment: TRANSFER TO HIGHER LEVEL OF CARE- [facility]- ICU Follow-Ups: Geraldine Dahl MD [Primary Care Provider] - Discharge Location: [facility]
[2024-02-29 14:06] VITALS: BP 99/48; PULSE 86; RESP 25; TEMP 98
== END 2024-02-29 11:51 | disposition short-term general hospital (02) | DRG 193 ==
LOC: MS 15:18
PROVIDERS: ADMIT Family Medicine; ATTEND Family Medicine
DX: J18.9 Pneumonia, unspecified organism; E88.09 Other disorders of plasma-protein metabolism, not elsewhere classified; F42.3 Hoarding disorder; J80 Acute respiratory distress syndrome; F33.1 Major depressive disorder, recurrent, moderate; R52 Pain, unspecified; E03.8 Other specified hypothyroidism; E87.6 Hypokalemia; E83.42 Hypomagnesemia; R45.851 Suicidal ideations; J10.1 Influenza due to other identified influenza virus with other respiratory manifestations; R50.9 Fever, unspecified